=== PATIENT | male | born 1950 | race Caucasian/White ===

== ENCOUNTER 2016-06-12 07:47 | Day surgery (SDC) | payer MEDICARE, OTHER ==
[~2016-06-12 07:47] MED LIST: CHONDR SU A NA/HYALUR INTRAOC KIT (SURGICARE) ONE; EPINEPHRINE INJ/PF 1 MG/1 ML AMPULE ONE; KETOROLAC TROMETHAMINE 0.45% 4 DROP/0.4 ML DROPERETTE OD PRN; LIDOCAINE 1% INJ-PF (10 MG/ML) 30 ML SDV ONE; MIDAZOLAM 2 MG/2 ML INJ ONE; TOBRAMYCIN SULFATE/DEXAMETH OPH OINTMENT 3.5 GM ONE
[2016-06-12] MEDS: CYCLOPENTOLATE 0.2%/PHENYLEPHRINE 1% OPH SOLN 2 ML OD PRN ×3 (08:24→08:49)
[2016-06-12] MEDS: TETRACAINE HCL 0.5% OPH SOLN 0.6 ML DROPERETTE OD PRN ×3 (08:24→08:55)
[2016-06-12] MEDS: TROPICAMIDE 1% OPH SOLN 3 ML OD PRN ×3 (08:25→08:49)
[2016-06-12] MEDS: BESIFLOXACIN HCL 0.6% OPH SUSP 5 ML BOTTLE OD PRN ×3 (08:26→09:14)
== END 2016-06-12 09:55 | disposition home or self-care (01) ==
LOC: SC 07:47
PROVIDERS: ATTEND Ophthalmology
PROC: 08RJ3JZ Replacement of Right Lens with Synthetic Substitute, Percutaneous Approach (ICD-10-PCS; principal; 2016-06-12 09:00)
DX: H25.11 Age-related nuclear cataract, right eye (principal); E78.00 Pure hypercholesterolemia, unspecified; I10 Essential (primary) hypertension; Z79.82 Long term (current) use of aspirin; Z79.899 Other long term (current) drug therapy; Z88.0 Allergy status to penicillin
CPT/HCPCS: 66984; V2630; J2250; J3490 ×3; A9270; J0171; 142

== ENCOUNTER 2016-06-26 07:44 | Day surgery (SDC) | payer MEDICARE, OTHER ==
[~2016-06-26 07:44] MED LIST changes: -CHONDR SU A NA/HYALUR INTRAOC KIT (SURGICARE) ONE; -EPINEPHRINE INJ/PF 1 MG/1 ML AMPULE ONE; -KETOROLAC TROMETHAMINE 0.45% 4 DROP/0.4 ML DROPERETTE OD PRN; +KETOROLAC TROMETHAMINE 0.45% 4 DROP/0.4 ML DROPERETTE OS PRN; -LIDOCAINE 1% INJ-PF (10 MG/ML) 30 ML SDV ONE; -TOBRAMYCIN SULFATE/DEXAMETH OPH OINTMENT 3.5 GM ONE
[2016-06-26] MEDS ORDERED: EPINEPHRINE INJ/PF 1 MG/1 ML AMPULE ONE (08:08)
[2016-06-26] MEDS ORDERED: CHONDR SU A NA/HYALUR INTRAOC KIT (SURGICARE) ONE (08:09)
[2016-06-26] MEDS ORDERED: TOBRAMYCIN SULFATE/DEXAMETH OPH OINTMENT 3.5 GM ONE (08:09)
[2016-06-26] MEDS ORDERED: LIDOCAINE 1% INJ-PF (10 MG/ML) 30 ML SDV ONE (08:09)
[2016-06-26] MEDS: TROPICAMIDE 1% OPH SOLN 3 ML OS PRN ×3 (08:18→08:37)
[2016-06-26] MEDS: CYCLOPENTOLATE 0.2%/PHENYLEPHRINE 1% OPH SOLN 2 ML OS PRN ×3 (08:19→08:38)
[2016-06-26] MEDS: BESIFLOXACIN HCL 0.6% OPH SUSP 5 ML BOTTLE OP PRN ×3 (08:20→09:05)
[2016-06-26] MEDS: TETRACAINE HCL 0.5% OPH SOLN 0.6 ML DROPERETTE OS PRN ×3 (08:22→08:47)
== END 2016-06-26 09:39 | disposition home or self-care (01) ==
LOC: SC 07:44
PROVIDERS: ATTEND Ophthalmology
PROC: 08RK3JZ Replacement of Left Lens with Synthetic Substitute, Percutaneous Approach (ICD-10-PCS; principal; 2016-06-26 09:00)
DX: H25.12 Age-related nuclear cataract, left eye (principal); Z96.1 Presence of intraocular lens; I10 Essential (primary) hypertension; E78.00 Pure hypercholesterolemia, unspecified; Z96.651 Presence of right artificial knee joint; F17.210 Nicotine dependence, cigarettes, uncomplicated; Z85.46 Personal history of malignant neoplasm of prostate; Z79.899 Other long term (current) drug therapy; Z79.82 Long term (current) use of aspirin; Z88.0 Allergy status to penicillin
CPT/HCPCS: 66984; V2630; J2250; J3490 ×3; A9270; J0171; 142

== ENCOUNTER → 2016-10-18 | Outpatient (CLI) | payer MEDICARE, OTHER | LOC: RAD 06:43 | PROVIDERS: ATTEND Otolaryngology | DX: J33.9 Nasal polyp, unspecified (principal) | CPT/HCPCS: 70486 ==

== ENCOUNTER 2016-11-05 10:40 | Day surgery (SDC) | payer MEDICARE, OTHER ==
[2016-11-05] MEDS ORDERED: FENTANYL CITRATE INJ/PF 100 MCG/2 ML AMPUL ONE (11:57)
[2016-11-05] MEDS ORDERED: ONDANSETRON HCL INJ/PF 4 MG/2 ML SDV ONE (11:57)
[2016-11-05] MEDS ORDERED: MIDAZOLAM 2 MG/2 ML INJ ONE (11:57)
[2016-11-05] MEDS ORDERED: LIDOCAINE 2% INJ-PF (20 MG/ML) 10 ML AMPUL ONE (11:57)
[2016-11-05] MEDS ORDERED: DEXAMETHASONE SOD PHOS INJ 10 MG/1 ML VIAL ONE (11:57)
[2016-11-05] MEDS ORDERED: PROPOFOL INJ 200 MG/20 ML VIAL IV ONE (11:58)
[2016-11-05] MEDS ORDERED: SUCCINYLCHOLINE CHLORIDE INJ 200 MG/10 ML VIAL ONE (11:58)
[2016-11-05] MEDS ORDERED: LIDOCAINE 1%/EPINEPHRINE INJ 20 ML VIAL ONE (12:28)
[2016-11-05] MEDS ORDERED: OXYMETAZOLINE HCL 0.05% NASAL SPRAY 15 ML BOTTLE ONE (12:28)
--- NOTE | 2016-11-05 15:22 | SURGICARE OPERATIVE REPORT E ---
[facility] Operative Report NAME: ABBIE FUNEZ AGE: 66Y DATE OF SURGERY: 11/05/2016 ROOM: PREOPERATIVE DIAGNOSIS: Nasal lesion, possible polyp right nasal fossa. POSTOPERATIVE DIAGNOSIS: Nasal lesion, possible polyp right nasal fossa. OPERATION: Functional endoscopic sinus surgery, removal of nasal lesion, exploration under anesthesia. SURGEON: SAILAJA CORCORAN M.D. F.A.C.S. ANESTHESIA: MD INDICATIONS: A 66-year-old white male with a long history, six months, of inability to breath through the right nostril. Preoperative examination shows a nasal polypoid lesion in appearance with obstruction of the entire right nasal fossa. The septum is deviated. Preoperative CT scanning obtained showing soft tissue mass. The sinus cavities appeared clear on CT evaluation. deviated septum noted. He was taken to the operating room for removal, biopsy, and pathology. Rule out carcinoid type/verrucous lesion. Risks and benefits discussed and accepted preoperatively. OPERATIVE PROCEDURE: General anesthesia via orotracheal tube. Patient placed in slightly varus Trendelenburg position, prepped and draped for nasal surgery. A time out procedure performed. The nose was examined. There was a large fungating and verrucous appearing lesion in the right nose. This was removed. The base appeared from the septum in the mid section. A functional endoscopic sinus surgery was then performed. A 30-degree, suction/irrigating endoscope was utilized. Examination of the right was performed under TV guidance. All cavities appeared normal. The right maxillary antrum identified and without abnormality. The right anterior and posterior ethmoid cavities were normal. Nasopharynx clear. The suction dissector and power dissector was utilized to trim the base of the lesion previously resected. Next, the left endoscopic sinus surgery was performed. The left maxillary antrum examined, nasal frontal duct, left anterior and posterior ethmoid, and left sphenoid area examined and normal. Nasopharynx is clear on the left. Total blood loss for the procedure was approximately 5 mL. Packing was utilized using dry Gelfoam on the right. The patient tolerated the procedure well. Pathology is submitted and awaiting results. DICTATING PHYSICIAN: SAILAJA CORCORAN M.D. [id number] PHY#: [id number] [id number] JOB#: [id number] ACCT: [id number] cc:SAILAJA CORCORAN M.D. > PETE
== END 2016-11-05 15:05 | disposition home or self-care (01) ==
LOC: SC 10:40
PROVIDERS: ATTEND Otolaryngology
PROC: 09B Ear, Nose, Sinus, Excision (ICD-10-PCS; principal; 2016-11-05 12:00)
DX: J33.9 Nasal polyp, unspecified (principal); J34.89 Other specified disorders of nose and nasal sinuses; J34.3 Hypertrophy of nasal turbinates; I10 Essential (primary) hypertension; G43.909 Migraine, unspecified, not intractable, without status migrainosus; Z79.899 Other long term (current) drug therapy; Z88.0 Allergy status to penicillin; Z79.82 Long term (current) use of aspirin
CPT/HCPCS: 88304 ×2; 31237; C1751; J2250; J3010; J3490 ×3; J0330; J2405; J2704; J1100; 160

== ENCOUNTER 2018-12-16 05:20 | Day surgery (SDC) | payer MEDICARE, OTHER ==
[2018-12-07 09:42] LABS: HEMATOCRIT 44.4 % (37.9-51.0); HEMOGLOBIN 15.1 g/dL (13.5-17.0); MEAN CORPUSCULAR HEMOGLOBIN 30.7 pg (27.0-33.4); MEAN CORPUSCULAR HGB CONC 33.9 g/dL (32.0-36.0); MEAN CORPUSCULAR VOLUME 91 fl (80-97); PLATELET COUNT 245 10^3/uL (150-450); RED BLOOD COUNT 4.91 10^6/uL (4.35-5.55); RED CELL DISTRIBUTION WIDTH 13.6 % (11.5-14.0); WHITE BLOOD COUNT 7.8 10^3/uL (4.0-10.5)
[2018-12-07 10:08] LABS: ANION GAP 9 (5-19); BLOOD UREA NITROGEN 22 mg/dL (7-20); CALCIUM 9.4 mg/dL (8.4-10.2); CARBON DIOXIDE 26 mmol/L (22-30); CHLORIDE 107 mmol/L (98-107); GLUCOSE 95 mg/dL (75-110); POTASSIUM 4.4 mmol/L (3.6-5.0); SODIUM 141.7 mmol/L (137-145)
--- NOTE | 2018-12-08 00:40 | EKG REPORT ---
SEVERITY:- ABNORMAL ECG - SINUS RHYTHM LAD, CONSIDER LEFT ANTERIOR FASCICULAR BLOCK : Confirmed by: Charlie Goldstein 08-Dec-2018 00:39:39
[~2018-12-16 05:20] MED LIST changes: +CEFAZOLIN 1 GM/D5W RTU 1 GM/50 ML RTUPB IV ONE; +CEFAZOLIN 1 GM/D5W RTU 1 GM/50 ML RTUPB IV PRN; -KETOROLAC TROMETHAMINE 0.45% 4 DROP/0.4 ML DROPERETTE OS PRN; +LACTATED RINGERS 1000 ML IV PRN; +LIDOCAINE 0.5% INJ-PF (5 MG/ML) 50 ML SDV SUBCUT PRN; -MIDAZOLAM 2 MG/2 ML INJ ONE
[2018-12-16] MEDS ORDERED: HYDROMORPHONE HCL INJ/PF 2 MG/ML AMPULE ONE (06:42)
[2018-12-16] MEDS ORDERED: MIDAZOLAM 2 MG/2 ML INJ ONE (06:42)
[2018-12-16] MEDS ORDERED: FENTANYL CITRATE INJ/PF 100 MCG/2 ML AMPUL ONE (06:42)
[2018-12-16] MEDS ORDERED: PROPOFOL INJ 200 MG/20 ML VIAL IV ONE (06:43)
[2018-12-16] MEDS ORDERED: LIDOCAINE 2% INJ (20 MG/ML) 20 ML MDV ONE (06:44)
[2018-12-16] MEDS ORDERED: MICROFIBRILLAR COLLAGEN 1 GM PACK ONE (07:01)
[2018-12-16] MEDS ORDERED: CLINDAMYCIN 600 MG/D5W RTU 600 MG/50 ML RTUPB IV ONE (07:11)
[2018-12-16] MEDS ORDERED: FENTANYL CITRATE INJ/PF 100 MCG/2 ML AMPUL IV PRN ×6 (07:58→13:04)
[2018-12-16] MEDS ORDERED: DIPHENHYDRAMINE HCL 50 MG/ML VIAL IV PRN ×2 (07:58→13:04)
[2018-12-16] MEDS ORDERED: ONDANSETRON HCL INJ/PF 4 MG/2 ML SDV IV PRN ×2 (07:58→13:04)
[2018-12-16] MEDS ORDERED: MEPERIDINE HCL/PF INJ 25 MG/1 ML DISP.SYRIN IV PRN ×2 (07:58→13:04)
[2018-12-16] MEDS ORDERED: PROMETHAZINE HCL INJ 25 MG/1 ML VIAL IV PRN ×2 (07:58→13:04)
[2018-12-16] MEDS ORDERED: MORPHINE SULFATE 10 MG/ML INJ IV PRN ×2 (07:58→09:41)
[2018-12-16] MEDS ORDERED: OXYCODONE-ACETAMINOPHEN 5-325 MG TABLET PO PRN ×4 (07:58→13:04)
[2018-12-16] MEDS ORDERED: DEXAMETHASONE SOD PHOSPHATE INJ 4 MG/1 ML VIAL ONE ×2 (08:58→10:38)
[2018-12-16] MEDS ORDERED: DEXTROSE 5%-LACTATED RINGERS 1,000 ML IV PRN (09:41)
--- NOTE | 2018-12-16 10:00 | Operative Report ---
Operative Report DATE OF SURGERY: 12/16/18 PREOPERATIVE DIAGNOSIS: Right thyroid lobe multinodular goiter with hemorrhagic cyst POSTOPERATIVE DIAGNOSIS: Same OPERATION: 1. Focused ultrasound of the neck. 2. Right mikki-thyroidectomy SURGEON: JODIE HOPE 1ST SET UP / OPERATOR: ROSMERY AMIN ANESTHESIA: GA - Right thyroid lobe TISSUE REMOVED OR ALTERED: Right thyroid lobe COMPLICATIONS: None ESTIMATED BLOOD LOSS: 50 cc INTRAOPERATIVE FINDINGS: See below PROCEDURE: The patient was seen in the preop holding area with the neck was marked by Dr. Hope. He was then taken to the main operating room where general anesthesia was induced. Arms were tucked at patient's side, cervical spine extended, and back of the head supported. The neck and chest superiorly were prepped and draped in sterile fashion Surgical plan and surgical timeout were conducted. We performed focused ultrasound of the neck. Again the patient was found to have a large, cystic, multinodular goiter on the right side. The isthmus was attenuated. Left lobe was small, with some calcifications on the anterior surface. No other pathology in the neck seen. A yandy was made on the neck for standard 6-1/2 to 7 cm transcervical incision. The skin was incised with a #10 blade. Superior and inferior skin and platysma flaps were elevated in a standard fashion from the hyoid cartilage down to the suprasternal notch. Strap muscles were divided midline, and the right muscles were elevated off of the anterior surface of the enlarged right thyroid lobe. Dr. Hope switched positions, and continued the dissection under excellent visualization; we released to the loose areolar tissue between the anterior lateral surface of the right lobe from the posterior surface of the strap muscles. There was no evidence of adhesions infection or tumor. There was no thickened scarring. We worked in a circumferential fashion elevating the thyroid lobe off of its superior inferior and posterior attachments. Branches of the median thyroid vein were divided. The lobe extended down into the deep right neck and under the clavicle. With gentle traction again working in a circumferential fashion, and staying right on gland, I was able to very carefully using blunt finger dissection mobilized the mid and inferior aspects of the right thyroid lobe such that it could be delivered into the wound. We were now able to continue freeing up the inferior pole attachments. We did not directly visualize the right inferior parathyroid gland. We took the superior portion of the isthmus off of the trachea, and moved laterally, taking down a tension of the right upper pole which appeared to be consistent with the pyramidal lobe, but it was not a midline. Nonetheless we took approximately 4 cm of this pedunculated serially based thyroid extension off of the cricothyroid cartilage. We Now took to the superior pole vessels as they arborized right on the gland. We divided the isthmus right over the trachea leaving thyroid lobe intact. Further attachments freeing up the inferior pole were released. We now focused our attention on the stream lateral surface of the right thyroid lobe. The right upper parathyroid gland was visualized in its bed of fatty tissue. We stayed right on gland throughout this dissection carefully dividing small branches from the inferior thyroid artery. The right recurrent laryngeal nerve was generous in diameter, and was in its usual location coming from lateral to medial, and was not harmed lifted or dissected out in any fashion throughout the procedure. Continue to work in a circumferential fashion freeing up all attachments between the inferior surface of the lobe, as well as the posterior surface coming off of the trachea. Fortunately there were no significant adhesions in this area. Eventually we had the gland suspended by a few fibrous elements and these were divided under magnified visualization. And there was no clinical evidence of Jarad's disease. The specimen was examined on the back table, all clips removed, sutures placed along silk in the lateral position short suture in the superior position. Estimate was sent fresh to Dr. Thony Noel who determined it represented benign thyroid tissue. We returned to the neck and check for bleeding there was none. The neck was taken out of extension. The trachea, recurrent laryngeal nerve, strap muscles, and soft tissue all appeared intact and on harmed. He was placed in the recesses of the wound. The wound was closed in layers including strap muscles and platysma with 2-0 Vicryl and 3-0 Vicryl and skin closed with 3-0 Vicryl Dermabond glue. Patient tolerated the procedure well, extubated, and taken recovery in stable condition. Voice analysis pending at time of dictation.
[2018-12-16] MEDS ORDERED: ONDANSETRON HCL INJ/PF 4 MG/2 ML SDV ONE ×2 (10:38→13:54)
[2018-12-16] MEDS ORDERED: ROCURONIUM BROMIDE INJ 50 MG/5 ML VIAL IV ONE (10:38)
[2018-12-16] MEDS ORDERED: GLYCOPYRROLATE 1 MG/5 ML VIAL ONE (10:38)
[2018-12-16] MEDS ORDERED: SUCCINYLCHOLINE CHLORIDE INJ 200 MG/10 ML VIAL ONE (10:38)
[2018-12-16] MEDS ORDERED: PHENYLEPHRINE HCL INJ/PF 10 MG/1 ML SDV ONE (10:38)
[2018-12-16] MEDS: ACETAMINOPHEN INJ/PF 1000 MG/100 ML SDV IV SCH ×2 (12:56→17:55)
[2018-12-16 19:36] VITALS: BP 124/61
== END 2018-12-16 19:45 | disposition home or self-care (01) ==
LOC: OROUT 05:20 → 4S 11:52 → OROUT 19:45
PROVIDERS: ATTEND Surgery
DX: E04.2 Nontoxic multinodular goiter (principal); E03.9 Hypothyroidism, unspecified; I71.4 Abdominal aortic aneurysm, without rupture; E55.9 Vitamin D deficiency, unspecified; F17.210 Nicotine dependence, cigarettes, uncomplicated; Z79.01 Long term (current) use of anticoagulants; Z85.46 Personal history of malignant neoplasm of prostate; Z79.82 Long term (current) use of aspirin; Z79.899 Other long term (current) drug therapy; I10 Essential (primary) hypertension
CPT/HCPCS: 93005; 36415 ×2; 82310; 85027; 80048; 88307 ×2; 93010; 00320; 60220; J2250; J3490 ×4; J0690; J1100; J1170; J2370; J0330; J2405; J2704; J0131; 320; J3010

== ENCOUNTER → 2019-01-06 | Outpatient (CLI) | payer MEDICARE, OTHER ==
[2019-01-06 15:06] LABS: FREE T3 3.58 pg/mL (2.77-5.27); FREE T4 (FREE THYROXINE) 0.85 ng/dL (0.78-2.19)
[2019-01-06 15:20] LABS: THYROID STIMULATING HORMONE 1.95 uIU/mL (0.47-4.68)
== END ==
LOC: OD 13:14
PROVIDERS: ATTEND Surgery
DX: E01.0 Iodine-deficiency related diffuse (endemic) goiter (principal)
CPT/HCPCS: 36415; 84439; 84443; 84481